=== PATIENT | female | born 1960 | race Two or more races ===

== ENCOUNTER 2024-05-05 09:00 | Outpatient (RCR) | payer MEDICAID, SELFPAY ==
--- NOTE | 2024-04-28 08:35 | PT.ODAYNRPT ---
PT Outpatient Daily Note OP Daily Note Outpatient Physical Therapy Treatment Date: 04/28/24 Visit Reasons: Right wrist pain Subjective: Much less wrist pain that allows her to cook and do ADL's easier Objective: See F/S for therex MT: STM ulnar styloid x5' Assessment: Less tissue irritability with therex of ulnar styloid region Plan: Continue per POC Length of Time (minutes) of Treatment: 30 Minutes Procedure Charges Therapeutic Exercise 30 minutes: Yes
--- NOTE | 2024-05-05 11:14 | PT.ODAYNRPT ---
PT Outpatient Daily Note OP Daily Note Outpatient Physical Therapy Treatment Date: 05/05/24 Visit Reasons: Right wrist pain Subjective: Much less wrist pain that allows her to cook and do ADL's easier Objective: See F/S for therex Assessment: Less tissue irritability with therex of ulnar styloid region Plan: Continue per POC Length of Time (minutes) of Treatment: 30 Minutes Procedure Charges Therapeutic Exercise 30 minutes: Yes
== END 2024-05-23 23:59 | disposition home or self-care (01) ==
LOC: CPTX 09:00
PROVIDERS: Referring Provider Nurse Practitioner Family; Visit Provider Nurse Practitioner Family
DX: M25.531 Pain in right wrist (principal); R53.1 Weakness; Z98.890 Other specified postprocedural states
CPT/HCPCS: 97110

== ENCOUNTER 2024-05-25 12:49 | Outpatient (RCR) | payer MEDICAID, SELFPAY ==
--- NOTE | 2024-05-25 13:50 | PT.ODS1RPT ---
PT OP Progress/Discharge Note Date of Service: 05/25/24 Progress Note/DC Note Progress Note/Discharge Note: DC Note Patient Information Visit Reasons: Right wrist pain Service Continue Service or Discharge: Discharge Status Subjective: Much less wrist pain that allows her to cook and do ADL's easier. She is prepared to D/C from therapy. 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 She can cook and do HH chores with low pain level to meet that goal. 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 Less tissue irritability with therex of ulnar styloid region Plan: D/C with HEP Procedure Charges Therapeutic Exercise 30 minutes: Yes
== END 2024-06-23 23:59 | disposition home or self-care (01) ==
LOC: CPTX 12:49
DX: M25.531 Pain in right wrist (principal); R53.1 Weakness; Z98.890 Other specified postprocedural states
CPT/HCPCS: 97110

== ENCOUNTER 2024-06-10 08:02 | Outpatient (RCR) | payer MEDICAID, SELFPAY ==
--- NOTE | 2024-06-10 08:40 | PTNOTE_ITS ---
PT OP Initial Eval Patient Information Outpatient Physical Therapy Treatment Date: 06/10/24 Visit Reasons: Neck pain Medical Diagnosis: M54.2 Start of Care: 06/10/24 Date of Onset: 3 yrs ago Smoking Status Smoking Status: Never smoker Initial Assessment Subjective: Pt is 64 yr old ge[place]ian speaking female who c/o chronic neck pain and 3 yrs ago it got worse. Increased pain with driving, moving the head, sitting, and the pain is intense. She wears a pain patch on L upper trap and can't take pain meds due to stomach issues. PMH: allergies, DM, hiatal hernia, stomach removal Imaging: with provider Objective: C/S AROM: ? Ext 80% of full with pain at end-range ? Flexion full with slight onset of ssx ? L rotation: 90% ? R rotation: 90% of full ? B SB: 15 deg with pain ? Spurlings: positive to R ? TTP: moderate of lower C/S paraspinals around C4-7 and UT?s ? B shoulder AROM: full FF ? [place]'s reflex: negative ? Assessment: Pt presents with high tissue irritability of C/S and decreased ROM with overlying myofascial pain and compression sensitivity consistent with advanced DDD. Pt not likely going to benefit from therapy or meet goals and will most likely have more pain with therapy visits. PT recommends pain management and orthopedic/neurosurgeon consultation. Short Term and Residential Goals Eval and D/C Treatment Plan Eval and D/C Certification Dates: 06/10/24-06/11/24 Procedure Charges OP PT Eval Mod Complex 30 minutes: Yes
== END 2024-06-23 23:59 | disposition home or self-care (01) ==
LOC: CPTX 08:02
PROVIDERS: PCP Nurse Practitioner Family; Referring Provider Nurse Practitioner Family; Visit Provider Nurse Practitioner Family
DX: M54.2 Cervicalgia (principal); G89.29 Other chronic pain
CPT/HCPCS: 97162